=== PATIENT | female | born 1965 | race Hispanic/Latino ===

== ENCOUNTER → 2017-04-05 | Day surgery (SDC) | payer OTHER ==
[~2017-04-05] VITALS: Ht 160 cm; Wt 72.1 kg
--- NOTE | 2017-04-05 09:33 | MAMMOGRAPHY REPORT ---
EXAMINATION: MM GUIDED NEEDLE LOCALIZATION BREAST, RIGHT BREAST CLINICAL INFORMATION: Localization of right breast papilloma for excisional biopsy. COMPARISON: MRI guided biopsy and post procedure mammogram dated 01/17/2017. TECHNIQUE NEEDLE LOC: Proper informed consent is obtained from the patient after discussion of the procedure, potential risks and complications, and alternatives including declining the procedure today. Patient was given an opportunity for questions. The patient appeared to understand. The patient consented to the procedure and signed the consent form. GUIDANCE: Digital mammography. APPROACH: Lateral. TARGET: Biopsy clip in the outer right breast. ANESTHESIA: 10 mL lidocaine 2 % LOCALIZATION MARKER: [email or web address] 5 cm needle. The skin was prepped and local anesthesia administered. The needle was positioned and position assessed with mammography. The wire was hooked into position. The patient tolerated the procedure well and had no immediate complication. Diagram was marked and images reviewed with Dr. Howell at the conclusion of the exam. The target is a biopsy clip at site of a papilloma, 3 cm deep to the skin with 10 cm of the wire remaining external to the skin. IMPRESSION: The target is a biopsy clip at site of a papilloma, 3 cm deep to the skin with 10 cm of the wire remaining external to the skin.
--- NOTE | 2017-04-05 09:38 | MAMMOGRAPHY REPORT ---
EXAMINATION: MM GUIDED NEEDLE LOCALIZATION BREAST, LEFT CLINICAL INFORMATION: Needle localization of biopsy-proven infiltrating ductal carcinoma in the left breast 12:00 position. COMPARISON: Mammogram and ultrasound guided biopsy dated 12/18/2016. TECHNIQUE NEEDLE LOC: Proper informed consent is obtained from the patient after discussion of the procedure, potential risks and complications, and alternatives including declining the procedure today. Patient was given an opportunity for questions. The patient appeared to understand. The patient consented to the procedure and signed the consent form. GUIDANCE: Digital mammography. APPROACH: Superior TARGET: Ribbon-shaped marker clip. ANESTHESIA: 10 mL lidocaine 2 % LOCALIZATION MARKER: Kopans 5 cm needle The skin was prepped and local anesthesia administered. The needle was positioned and position assessed with mammography. The wire was hooked into position. The patient tolerated the procedure well and had no immediate complication. Diagram was marked and images reviewed with Dr. Howell at the conclusion of the exam. The target is an infiltrating ductal carcinoma at site of a biopsy clip around the hook of the wire, 5.5 cm deep to the skin with 9.5 cm of the wire remaining external to the skin. IMPRESSION: Status post left breast needle localization with wire hooked into position. The target is an infiltrating ductal carcinoma at site of a biopsy clip around the hook of the wire, 5.5 cm deep to the skin with 9.5 cm of the wire remaining external to the skin.
--- NOTE | 2017-04-05 14:41 | Operative Report ---
Operative/Inv Procedure Report Surgery Date: 04/05/17 Name of Procedure: Right breast biopsy with wire localization, left partial mastectomy with wire localization, left sentinel lymph node biopsy Pre-Operative Diagnosis: Left breast cancer, right breast papilloma Post-Operative Diagnosis: Same Estimated Blood Loss: less than 50ml Surgeon/Public Speaker: Sheree Howell MD Anesthesia: local monitored anesthesi Specimens: Right breast biopsy, left sentinel lymph node 2, left lumpectomy, deep margin 1 , deep margin to, deep margin 3, cranial margin, caudal margin, medial margin, lateral margin, skin margin Operative/Procedure Note Note: Patient has a left breast cancer as well as a right breast papilloma measuring 7 mm in greatest diameter on original imaging. Preoperative for treatment of her left breast cancer as well as excision of the right breast. Anesthesia was ministered 2 g of Ancef was given. Bilateral breasts were prepped and draped in sterile fashion using ChloraPrep. 3 mL of methylene blue diluted with 2 mL of saline was injected in the retroareolar fashion. Right breast was approached first. Local anesthesia with lidocaine mixed with Marcaine was given and a curvilinear incision was made in the outer right breast. The wire was brought into the incision. A of concern was grasped using Allis clamp and excised. Intraoperative x-ray confirmed the presence of the clip in the specimen. Hemostasis was adequate and deep tissue was approximated using interrupted Vicryl sutures. The skin was closed using a running Biosyn subcuticular stitch. A left breast was then approached. Local anesthesia was again given and a transverse incision was made in the lower axilla. Clavipectoral fascia was entered in the axilla was explored. Was a hot lymph node identified with counts to 120. Was marked as sentinel lymph node #1 There was an additional lymph node with counts to 30. This was marked as sentinel lymph node #2. Hemostasis was adequate. There was no other hot, blue, or palpable lymph nodes in the axilla. Deep tissue was approximated using interrupted Vicryl sutures and the skin was closed using a running Biosyn subcuticular stitch. Left breast was then approached. The localization entered the skin in the extreme upper breast and a curvilinear incision around the axilla was planned. Anesthesia was given and the previous periareolar incision was extended superiorly. Breast tissue was dissected and the wire was brought into the incision. The area of concern was grasped using an Allis clamp and dissected. The wire was not seen and the specimen was marked for orientation using margin map. Intra-operative x-ray Failed to confirm the presence of the clip in the specimen. Additional tissue was taken. There was a firm area deep to the lumpectomy and this was taken as deep margin 1. There remained additional deep tissue and this was taken as deep margin #2. Deep margin #2 showed the clip in the x-ray. Additional margins were taken in the deep #3, cranial, caudal, medial, lateral, and skin positions. Hemostasis was adequate. Due to location of the tumor a Biosorb Marker was not placed. Margins a lumpectomy were with clips. Deep tissue was proximal made using interrupted Vicryl sutures and the skin was closed using a running Biosyn subcuticular stitch. Steri-Strips and sterile dressings were applied and the patient was transferred to the recovery room in satisfactory condition having tolerated the procedure well.
--- NOTE | 2017-04-05 17:09 | MAMMOGRAPHY REPORT ---
EXAMINATION: MM NEEDLE LOCALIZATION SPECIMEN FROM THE BREAST, LEFT CLINICAL INDICATION: Left breast cancer. COMPARISON: Needle localization films from earlier today. TECHNIQUE: Radiographs of multiple specimens was obtained. FINDINGS: The radiograph of the initial excised surgical specimen shows that the hookwire is delivered intact, but the marker clip is not identified in the specimen. After obtaining 5 additional small specimens, the marker clip and associated mass and architectural distortion were isolated subsequent specimen radiographs. IMPRESSION: Satisfactory excision of the targeted lesion.
--- NOTE | 2017-04-05 17:10 | MAMMOGRAPHY REPORT ---
EXAMINATION: MM NEEDLE LOCALIZATION SPECIMEN FROM THE BREAST, RIGHT CLINICAL INDICATION: Excision of papilloma. COMPARISON: Preoperative needle localization films from earlier today. TECHNIQUE: Single specimen radiograph was obtained. FINDINGS: The radiograph of the excised surgical specimen shows that the hookwire is delivered intact and the marker clip is identified in the specimen. IMPRESSION: Satisfactory excision of the targeted lesion. These findings were communicated to the surgeon in the OR at the time of specimen radiography.
== END ==
LOC: STS 02:31
DX: C50.212 Malignant neoplasm of upper-inner quadrant of left female breast (principal); Z17.0 Estrogen receptor positive status [ER+]; D24.1 Benign neoplasm of right breast
CPT/HCPCS: J0690; J2001; J2250; J3490; Q9968